=== PATIENT | female | born 1945 | race Caucasian/White ===

== ENCOUNTER → 2017-09-04 | Emergency (ER) | payer OTHER ==
[~2017-09-04] VITALS: Ht 157.5 cm; Wt 66.7 kg
[~2017-09-04] MED LIST: COZAAR50 MG; SYNTHROID50 MCG
== END | disposition home or self-care (01) ==
LOC: ER 18:20
DX: J11.1 Influenza due to unidentified influenza virus with other respiratory manifestations (principal); B34.9 Viral infection, unspecified

== ENCOUNTER → 2019-05-10 | Outpatient (CLI) | payer OTHER | END | disposition home or self-care (01) | LOC: NUCLEAR 07:26 | DX: I25.10 Atherosclerotic heart disease of native coronary artery without angina pectoris (principal); I67.89 Other cerebrovascular disease; R00.2 Palpitations; R06.02 Shortness of breath | CPT/HCPCS: 78452; 93017; 93306; 93880; A9500; J0153 ==

== ENCOUNTER 2020-10-01 10:50 | Outpatient (CLI) | payer OTHER | END 2020-10-01 10:55 | disposition home or self-care (01) | LOC: RAD 10:50 | DX: M25.59 Pain in other specified joint (principal); M23.242 Derangement of anterior horn of lateral meniscus due to old tear or injury, left knee; M17.12 Unilateral primary osteoarthritis, left knee; M25.551 Pain in right hip ==

== ENCOUNTER 2021-01-24 13:41 | Outpatient (CLI) | payer OTHER | END 2021-01-24 13:51 | disposition home or self-care (01) | LOC: RAD 13:41 | DX: M25.552 Pain in left hip (principal); M25.551 Pain in right hip; M54.5 Low back pain; M53.1 Cervicobrachial syndrome; M50.30 Other cervical disc degeneration, unspecified cervical region ==

== ENCOUNTER → 2022-11-18 | Outpatient (CLI) | payer OTHER | END | disposition home or self-care (01) | LOC: NUCLEAR 10:00 | DX: I87.2 Venous insufficiency (chronic) (peripheral) (principal) ==

== ENCOUNTER 2022-11-20 13:20 | Outpatient (CLI) | payer OTHER | END 2022-11-20 13:22 | disposition home or self-care (01) | LOC: NUCLEAR 13:20 | PROVIDERS: ATTEND Specialist | DX: M81.0 Age-related osteoporosis without current pathological fracture (principal) ==

== ENCOUNTER 2024-10-26 12:31 | Outpatient (CLI) | payer OTHER | END 2024-10-26 12:36 | disposition home or self-care (01) | LOC: RAD 12:31 | PROVIDERS: ATTEND Physical Medicine & Rehabilitation | DX: M54.17 Radiculopathy, lumbosacral region (principal) ==

== ENCOUNTER 2024-12-28 09:15 | Outpatient (CLI) | payer OTHER | END 2024-12-28 09:17 | disposition home or self-care (01) | LOC: NUCLEAR 09:15 | PROVIDERS: ATTEND Internal Medicine | DX: I11.9 Hypertensive heart disease without heart failure (principal); I87.2 Venous insufficiency (chronic) (peripheral) ==